=== PATIENT | female | born 1955 | race Two or more races ===

== ENCOUNTER → 2016-08-10 | Outpatient (CLI) | payer BC ==
[~2016-08-10] MED LIST: EFFEXOR XR75 MG PO; MEDROL4 M1 PO; ONE DAILY FOR1 EAC3 PO; VITAMIN D1000 UNI1 PO
== END | disposition disaster alternative care site (69) ==
LOC: GRAD 15:00
DX: M62.89 Other specified disorders of muscle (principal); M47.892 Other spondylosis, cervical region; R53.1 Weakness; R20.2 Paresthesia of skin; R20.0 Anesthesia of skin

== ENCOUNTER 2016-08-23 13:30 | Inpatient (IN) | payer BC ==
[~2016-08-23] VITALS: Ht 168.9 cm; Wt 72.5 kg
--- NOTE | ~2016-08-23 | PN ---
PATIENT'S NAME: GUS MARIA [facility] AGE: 61 Y [address] ROOM: [id number] [place], [place] [address] LOCATION: GICU ADMIT DATE: 08/23/2016 Progress Notes DISCHARGE DATE: FAMILY PHYSICIAN: Yanique Kunz MD ATTENDING PHYSICIAN: Ly Mukherjee DATE OF SERVICE: 08/28/2016 TIME SEEN: 12:55 p.m. HISTORY OF PRESENT ILLNESS: The patient is sitting in a chair. She states she worked with PT and OT today and she is unable to get out of the chair. She also wanted Dr. Jolly to know that she fell yesterday. She was walking with PT and her knees buckled and she sat on the floor. Today, she states she is doing a little better. She is sore where she had a muscle biopsy taken yesterday. PHYSICAL EXAMINATION: VITAL SIGNS: Temperature is 98.1 orally, pulse is 81, respirations 18, and blood pressure 110/57. She is saturating 96% on room air. GENERAL: She is in no acute distress. NEUROLOGICAL: Alert and oriented x4. She is able to push off the chair and stand. No pronator drift noted. Upper extremity strength worse on the right than the left with a 3 on the right and a 3+ on the left. She is able to feed herself and comb her hair. She is utilizing a walker to walk with and able to have good flying teacher strengths on that. She has some numbness and tingling on her pads of her fingers bilaterally. Her hip flexor strength is 5. Her extensor strength is 5. She is able to plantar flex and dorsiflex with good strength. In summary, this 61-year-old female, feels weak although parts of her exam are inconsistent with her feelings of weakness. Parts of her exam are inconsistent with her statements of not being able to get up out of the chair. ASSESSMENT AND PLAN: Throughout all of our testing, we have not found any reason for her weakness. The muscle biopsy is pending. We will follow up with a nerve conduction study outpatient. Because the patient is no better and states she has had declining weakness over the last 2 days, we will try a trial run of Solu-Medrol 1 g IV q.24 hours x3. We will evaluate this to see if it helps her muscle weakness. The patient has a followup appointment with Dr. Kunz in the outpatient clinic on September 14. We will certainly keep that and also if possible get an EMG for this patient. The plan of care was related to the patient and family and daughter who were all present. They asked appropriate questions. I worked with Dr. Jolly in developing the plan of care and examining the patient PATIENT'S NAME: GUS MARIA [facility] AGE: 61 Y [address] ROOM: [address] [address] LOCATION: [facility] ADMIT DATE: 08/23/2016 Progress Notes DISCHARGE DATE: FAMILY PHYSICIAN: Yanique Kunz MD ATTENDING PHYSICIAN: Ly Mukherjee and reviewing the records which took 30 minutes. The plan of care was also relayed to Dr. Arriaga and Dr. Mukherjee. SCOTT CAMPBELL APRN FOR TELLY JOLLY MD PP/modl /[id number] d: 08/28/16 1511 t: 09/11/16 1834, PROGRESS NOTES
--- NOTE | ~2016-08-23 | HP ---
PATIENT'S NAME: DANIA MARIA [facility] AGE: 61 Y [address] ROOM: [place] [address] LOCATION: [facility] ADMIT DATE: 08/23/2016 History & Physical DISCHARGE DATE: 08/30/2016 FAMILY PHYSICIAN: Yanique Kunz MD ATTENDING PHYSICIAN: Ly Mukherjee DATE OF SERVICE: PATIENT IDENTIFICATION: Dania Maria is a 61-year-old female. PRESENTING COMPLAINT: Weakness. HISTORY OF PRESENT ILLNESS: The patient has had progressive weakness noted since June 2016. She had been on a camping trip with her and she thinks she may have been bit by an insect during that camping trip. She was seen initially by Dr. Arriaga and then referred to Neurosurgery for evaluation and treatment. I felt this was sufficient to admit the patient to hospital to enable investigations as to the cause of her weakness. The patient was therefore admitted from clinic to the hospital. The weakness appeared to be worse on the left side with an associated visual field defect as well. PAST MEDICAL HISTORY: The patient has had a history of depression. PAST SURGICAL HISTORY: None. FAMILY HISTORY: The patient's mother had heart failure, father had a stroke. SOCIAL HISTORY: The patient does not smoke or drink. REVIEW OF SYSTEMS: A review of systems was carried out. On all systems no abnormality was found except as documented in the history of present illness. PHYSICAL EXAMINATION: GENERAL: The patient is a healthy-looking female, who was not in acute distress at the time I saw her. VITAL SIGNS: Reviewed and stable. NEUROLOGICAL: Speech is clear. Cranial nerves: No deficits seen. Motor: PATIENT'S NAME: DANIA MARIA [facility] AGE: 61 Y [address] ROOM: [id number] [place] [address] LOCATION: [facility] ADMIT DATE: 08/23/2016 History & Physical DISCHARGE DATE: 08/30/2016 FAMILY PHYSICIAN: Yanique Kunz MD ATTENDING PHYSICIAN: Ly Mukherjee The patient has 3-4 weakness in her upper extremities, left side weaker than right. In the lower extremities, she has 4/5 weakness again more on the left side. Reflexes: Present bilaterally. Gait: Gait was difficult as she had the weakness. CARDIOVASCULAR SYSTEM: Heart sounds are present. RESPIRATORY SYSTEM: The patient is not short of breath at bedside. EXTREMITIES: No cyanosis or clubbing. SKIN: No skin rashes or skin masses. REVIEW OF IMAGING STUDIES: The patient has had a lumbar MRI scan. The MRI does not show any significant compression to explain the patient's weakness. ASSESSMENT: A 61-year-old lady with generalized weakness greater on the right side. Brain MRI and lumbar MRI did not show cause of weakness. MEDICAL DECISION MAKING: The patient is being admitted to the hospital for workup. Neurology will be consulted to evaluate and recommend treatment. There is no indication for neurosurgical intervention. MD DESMOND BURGOS/roxannl /[id number] D: T: HISTORY & PHYSICAL
--- NOTE | ~2016-08-23 | OR ---
PATIENT'S NAME: GUS MARIA [facility] AGE: 61 Y [address] ROOM: [address] [address] LOCATION: [facility] ADMIT DATE: 08/23/2016 OR/Procedure Report DISCHARGE DATE: FAMILY PHYSICIAN: Yanique Kunz MD ATTENDING PHYSICIAN: Ly Mcmahon SURGEON: Ly Mcmahon MD SOLAR FIELD SERVICE TECHNICIAN: 1. Tate Carpenter CRNA. 2. Marzena Llanos CRNA. DATE OF PROCEDURE: 08/27/2016 PREOPERATIVE DIAGNOSIS: Generalized weakness. POSTOPERATIVE DIAGNOSES: Generalized weakness. PROCEDURE PERFORMED: Left quadriceps muscle biopsy. ANESTHESIA: General. HISTORY: The patient is a 61-year-old female, who presented with generalized weakness. Muscle biopsy was indicated to help figure out the cause of her weakness. The procedure, benefits, and risks were discussed with the patient and with her consent, she was brought to the operating room. PROCEDURE IN DETAIL: In the operating room, the patient was placed in a supine position. Anesthesia was induced. She was intubated. The anterior surface of the left thigh was prepped and draped in a sterile fashion. The incision line was marked out. Local anesthesia was infiltrated into the skin. The skin was opened and self-retaining retractors were used to hold the skin back. The fascia was opened. Muscle was held between the muscle clamps and biopsy was taken. Hemostasis was achieved. The incision was closed in layers using appropriate suture materials. Dermabond was used to close the skin. A sterile dressing was applied. The patient tolerated the procedure without any apparent intraoperative complications. Swabs, needles, and instruments were all accounted for at the end of the case. Estimated blood loss was less than 10 mL. There was no reason for blood transfusion. Hopefully, the procedure will help figure out, what was causing the patient's weakness, and help determine appropriate treatment. LY MCMAHON MD CNO/modl PATIENT'S NAME: GUS MARIA [facility] AGE: 61 Y [address] ROOM: [id number] [place], [place] [address] LOCATION: GICU ADMIT DATE: 08/23/2016 OR/Procedure Report DISCHARGE DATE: FAMILY PHYSICIAN: Yanique Kunz MD ATTENDING PHYSICIAN: Ly Mcmahon /[id number] d: 08/29/16 0025 t: 09/08/16 1811, OPERATIVE SUMMARY
--- NOTE | ~2016-08-23 | PN ---
PATIENT'S NAME: GUS MARIA [facility] AGE: 61 Y [address] ROOM: [id number] [place], [place] [address] LOCATION: [facility] ADMIT DATE: 08/23/2016 Progress Notes DISCHARGE DATE: FAMILY PHYSICIAN: Yanique Kunz MD ATTENDING PHYSICIAN: Ly Mukherjee DATE OF SERVICE: 08/25/2016 TIME: 1:15 p.m. HISTORY OF PRESENT ILLNESS: The patient was seen in neurological followup. Yesterday, she did have a lumbar puncture and we are here to relate those results. The patient is sitting in bed, and has worked with physical therapy and states she is taking a shower and is exhausted. PHYSICAL EXAMINATION: VITAL SIGNS: Temp 98.0 oral, pulse 95, respirations 17, BP 137/75, and O2 saturations 93% on room air. GENERAL: The patient is alert, oriented, and cooperative with the exam. NEUROLOGIC: Again, noted the bilateral upper extremity weakness. It is 3 to 4 weakness on both upper extremities. Her triceps seems slightly stronger than her biceps. Lower extremities seem 4/5 as far as weakness goes. Sensation intact. DIAGNOSTIC DATA: The results of yesterday include a CPK of 127, a CSF protein of 51, a CSF glucose of 68, a CSF count of 1 red cell and 3 white cells. There are 0% neutrophils, 86% lymphocytes, and 14% monos. In addition, her meningitis panel has come up with nothing detected. Pending tests include VDRL in the West Nile test. ASSESSMENT AND PLAN: Muscle weakness. While we continue to rule out causes for this muscle weakness, it is imperative that the next step would be a muscle biopsy. It would be nice to give this patient steroids for her symptoms; however, starting steroids today would affect the muscle biopsy. Dr. Mukherjee is amenable to doing the muscle biopsy Saturday. We will not start steroids until the muscle biopsy is done. The patient, her , and their daughter was at bedside and agreed to the plan of care. Dr. Kinney and I spent 30 minute examining the patient, discussing with Dr. Mukherjee, and reviewing the patient's records. All questions were answered to the best of our ability. If you have any PATIENT'S NAME: GUS MARIA [facility] AGE: 61 Y [address] ROOM: [id number] [place] [address] LOCATION: [facility] ADMIT DATE: 08/23/2016 Progress Notes DISCHARGE DATE: FAMILY PHYSICIAN: Yanique Kunz MD ATTENDING PHYSICIAN: Ly Mukherjee questions, please do not hesitate to let us know. SCOTT CAMPBELL APRN FOR KATH KINNEY MD PP/modl /[id number] d: 08/25/16 1432 t: 09/11/16 1831, PROGRESS NOTES
--- NOTE | ~2016-08-23 | CON ---
PATIENT'S NAME: GUS MARIA [facility] AGE: 61 Y [address] ROOM: [place] [address] LOCATION: [facility] ADMIT DATE: 08/23/2016 Consultation DISCHARGE DATE: FAMILY PHYSICIAN: Yanique Kunz MD ATTENDING PHYSICIAN: Ly Mukherjee DATE OF CONSULTATION: 08/24/2016 NEUROLOGICAL CONSULTATION TIME: 12:10 p.m. CHIEF COMPLAINT: Weakness. HISTORY OF PRESENT ILLNESS: This is a 61-year-old female, who has had progressive weakness noted since the end of June. In April 2016, she did have a carpal tunnel EMG and had a subsequent release on the right in June. She has noted since the end of June, she has had difficulty standing for any length of time; she has had difficulty going up stairs; and she has had difficulty rising from a low seated position. Her weakness she states is in her arms and thighs. She states her right hand is burning in sensation. She denies any tingling. Her left hand pads of her fingers are somewhat numb. She was referred from her physician, Dr. Yanique Kunz to Dr. Arriaga, and he did do an aldolase, acetylcholine binding antibody, a B12, and a folic acid. The aldolase was the only abnormal at 8.7. In addition, the patient had an MRI of her brain with contrast, and a thoracic and lumbar MRI with contrast. She had a previous MRI of her cervical spine without contrast. There was nothing here to explain the patient's weakness, so she was admitted to the hospital for further evaluation. At the time of our examination, the patient is sitting in bed and is a good historian. The patient really has no other prior medical history and is only on Effexor as far as medications goes. She has had no recent travel outside of the [place]. No recent ill contacts or no new medications. PAST MEDICAL HISTORY: 1. Weakness. 2. Depression. PAST SURGICAL HISTORY: No prior surgeries. FAMILY HISTORY: Her mother did have congestive heart failure, and her father did have a PATIENT'S NAME: GUS MARIA [facility] AGE: 61 Y [address] ROOM: [place] [address] LOCATION: [facility] ADMIT DATE: 08/23/2016 Consultation DISCHARGE DATE: FAMILY PHYSICIAN: Yanique Kunz MD ATTENDING PHYSICIAN: Ly Mukherjee stroke. She does have a sister with lung cancer, who is a positive smoker. She has had a couple of recent falls and has really given up being on any kind of stairs. SOCIAL HISTORY: The patient does not drink nor does she smoke nor has never smoked. She denies any illicit drug use. She lives at home with her . 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 REVIEW OF SYSTEMS: Completed for all systems and are negative except mentioned in the HPI. PHYSICAL EXAMINATION: VITAL SIGNS: The patient is afebrile, heart rate 62, blood pressure 112/68, respirations 16. GENERAL: The patient appears in no acute distress and is a good historian. CV: S1, S2 without murmur, rub, or gallop. RESPIRATORY: Clear to auscultation bilaterally. SKIN: No rashes or lesions noted. NEUROLOGICAL: Extraocular movements intact bilaterally. The patient exhibits 3 to 4 out of 5 weakness bilateral arms with the left being slightly worse than the right. Her biceps strength is slightly stronger than her triceps strength bilaterally. Her lower extremities are possibly 4/5 bilaterally. Her reflexes are 1/5 for patellar and brachial reflexes. ASSESSMENT AND PLAN: The patient has had imaging that does not reveal anything out of the ordinary. Her weakness appears proximal. This appears to be a muscular more than a nerve condition. We will get a CPK and also get a lumbar puncture and do meningitis panel and routine counts. After these are completed, we will make further recommendations based on those results. We would like to thank Dr. Mukherjee for the opportunity to participate in this patient's care. Plan of care was discussed with the patient and family and all questions were answered. The time of consult was around 40 minutes, which included discussing with Dr. Mukherjee, talking with the family, and examining the patient. SCOTT CAMPBELL APRN FOR KATH KINNEY MD PP/fortino PATIENT'S NAME: GUS MARIA [facility] AGE: 61 Y [address] ROOM: [id number] [place], [place] [address] LOCATION: GICU ADMIT DATE: 08/23/2016 Consultation DISCHARGE DATE: FAMILY PHYSICIAN: Yanique Kunz MD ATTENDING PHYSICIAN: Ly Mukherjee /[id number] ATTESTATION: I have seen and evaluated the patient with WALT Osuna. This includes gathering history and performing physical exam via telemedicine cart. I agree with the outlined impression and plan and we have discussed it in detail with the patient and family. d: 08/24/162025 t: 09/14/161915, CONSULTATION REPORT
--- NOTE | ~2016-08-23 | CON ---
PATIENT'S NAME: GUS MARIA [facility] AGE: 61 Y [address] ROOM: [id number], [place] [address] LOCATION: GICU ADMIT DATE: 08/23/2016 Consultation DISCHARGE DATE: 08/30/2016 FAMILY PHYSICIAN: Yanique Kunz MD ATTENDING PHYSICIAN: Ly Mukherjee DATE OF CONSULTATION: 08/28/2016 I was asked to see this patient in Telemedicine Neurology consultation. Followup was performed with the assistance of nurse practitioner, Namita Randolph, 08/28/2016. Fernandes portions of history and examination were repeated. I agree with the discussed assessment and plan of care. 35 minutes spent reviewing the charts, imaging, examining the patient, and discussing plan of care with nurse practitioner and family. Jayshree Victoria MD Neurology Telespecialist Services MD TERESA BURNETTE/fortino /[id number] d: t: 09/02/16 1143, CONSULTATION REPORT
--- NOTE | ~2016-08-23 | DS ---
PATIENT'S NAME: GUS MARIA [facility] AGE: 61 Y [address] [id number] [address] LOCATION: GICU ADMIT DATE: 08/23/2016 Discharge Summary DISCHARGE DATE: 08/30/2016 FAMILY PHYSICIAN: Yanique Kunz MD ATTENDING PHYSICIAN: Ly Mcmahon REASON FOR ADMISSION: The patient presented with progressive weakness, which started in June of 2016. The reason she was admitted was to facilitate workup to help identify the cause of her weakness. During her stay in the hospital, the patient underwent left quadriceps muscle biopsy. This was done on August 27, 2016. She also had MRI scans of her thoracic and lumbar spines as well as brain. The patient's symptoms did not progress while in the hospital and it was possible to discharge her home for a Neurology followup. The dismissal was on August 30, 2016, and she was scheduled to come back to see the neurologist for further testing including EMG and possible nerve biopsy if indicated. She has since been seen by Neurology and is being treated appropriately. FINAL DIAGNOSIS: Generalized muscle weakness, uncertain diagnosis at time of discharge The only neurosurgical involvement was to the extent of performing a left quadriceps biopsy. LY MCMAHON MD CNO/modl /[id number] CC: Priyank Herndon MD d: t: 10/22/16 0045, DISCHARGE SUMMARY
[2016-08-23] MEDS ORDERED: EFFEXOR XR75 MG PO (16:05)
[2016-08-23] MEDS ORDERED: ONE DAILY FOR1 EAC3 PO (16:05)
[2016-08-23] MEDS ORDERED: VITAMIN D1000 UNI1 PO (16:06)
[2016-08-23 16:15] LABS: CREATININE 1.2 mg/dL (0.5-1.1)
[2016-08-30] MEDS ORDERED: MEDROL4 M1 PO (11:53)
== END 2016-08-30 12:30 | disposition disaster alternative care site (69) | DRG 502 ==
LOC: GICU 14:22
PROVIDERS: ADMIT Neurological Surgery
PROC: 0KBR0ZX Excision of Left Upper Leg Muscle, Open Approach, Diagnostic (ICD-10-PCS; principal; 2016-08-27)
DX: M62.81 Muscle weakness (generalized) (principal); F32.9 Major depressive disorder, single episode, unspecified; Z80.1 Family history of malignant neoplasm of trachea, bronchus and lung
CPT/HCPCS: J0690; J2930; J3010; J7050; J7120

== ENCOUNTER → 2016-09-13 | Outpatient (CLI) | payer BC ==
--- NOTE | ~2016-09-13 | NDGEN ---
PATIENT'S NAME: GUS MARIA [facility] AGE: 61 Y [address] ROOM: [place] [address] LOCATION: [facility] ADMIT DATE: 09/13/2016 Neurodiagnostics DISCHARGE DATE: FAMILY PHYSICIAN: Yanique Kunz MD ATTENDING PHYSICIAN: SCOTT CAMPBELL DATE OF PROCEDURE: 09/13/2016 PROCEDURES PERFORMED: A four-limb EMG report nerve conduction study and the needle EMG of all 4 limbs. The patient had this study done on 09/13/2016. INDICATION/DESCRIPTION: This is a 61-year-old female patient who up until was doing fine with her power in her bilateral upper and lower extremities. However, in the beginning of July, she started to develop weakness into her upper and lower extremities. The weakness seemed to progress from the legs somewhat upward, but the time course is somewhat unclear. She has not had any improvement in her power of her legs and her arms. She has a 3/5 grade power in biceps, triceps, brachioradialis, and quadriceps power 3+/5, and hip flexion is 3+/5. Dorsiflexion of her feet is 4/5. Plantar flexion is 4+/5 symmetrically. Reflexes are present at the biceps, triceps, and brachioradialis. Patellar reflexes are subtle at trace. Ankle jerks are absent, and plantar reflexes are neutral. There was normal tone of the limbs. The patient has no symptoms of fatiguing of her bulbar muscles such as puffing out of her cheeks. She does not have any active muscle fasciculations that are visible. She has no problems with chewing or swallowing. These nerve conduction studies and EMG were done to rule out as to why the patient has this progressive weakness as well to rule out any evidence of a polyneuropathy. The motor and sensory nerve conduction studies involved stimulating the median, ulnar, peroneal, and tibial motor nerves, as well as the median, ulnar, and sural sensory nerves. F-wave studies were also performed. There was prolonged time to activation of the onset latencies in the bilateral median nerves and bilateral ulnar nerves. Amplitudes were well preserved in the median and ulnar nerves. However, nerve conduction studies were extremely slow into the demyelinating range in the right hand of 27.9 m/sec and also slow in the left to 32 m/sec with normal range this should be in the 50 m/sec range. Furthermore, the ulnar compound motor action potential and amplitudes were well preserved, but there was slowing seen in the bilateral ulnar nerves as well down to demyelinating range of 25 to 27 m/sec. In the bilateral lower extremities, there was slowing of the motor onset PATIENT'S NAME: GUS MARIA [facility] AGE: 61 Y [address] ROOM: [place] [address] LOCATION: [facility] ADMIT DATE: 09/13/2016 Neurodiagnostics DISCHARGE DATE: FAMILY PHYSICIAN: Yanique Kunz MD ATTENDING PHYSICIAN: SCOTT CAMPBELL latencies seen in the bilateral peroneal and tibial motor nerves, however, compound motor action potentials, amplitudes were well preserved. Nerve conduction velocities were into the low 30s which were slow for this patient. Sensory nerve conduction studies show very delayed peak onset latencies in the bilateral median and ulnar nerves with nerve conduction velocities into the demyelinating range of 20 m/sec. The sural nerve studies showed delayed motor onset latencies as well. Next, the needle EMG was performed in all 4 limbs. In the right upper extremity, there was normal recruitment of motor unit action potentials with normal durations, insertional pattern and no evidence of any polyphasias. However, in the abductor pollicis brevis muscle on the left side, there was positive fibrillation potentials and positive sharp waves with noted fasciculations and reduced recruitment. In the right abductor pollicis brevis muscle, there was full recruitment of motor unit action potentials without any evidence of any spontaneous electrical activity. In the left tibialis anterior muscle, there was +2 fibrillation potentials and positive sharp waves. However, there was full recruitment of motor unit action potentials within normal insertional patterns. Finally, in the bilateral vastus lateralis muscles, there was definite reduced recruitment of motor unit action potentials with polyphasic motor units seen in the bilateral vastus lateralis muscles. In the testing of the biceps brachii, and the triceps muscles in the left upper extremity, there was decreased activation of motor unit action potentials due to severe weakness. In addition to these studies, a repetitive nerve stimulation test was also performed both at rest and with the patient exercising her trapezius muscles after 2 minutes. Compound motor action potentials were repetitively stimulated. There was initial decrement in compound motor action potential response with a normal increase in the amplitudes back to baseline at the tent stimulation bob. With exercise, there was normal compound motor action potential amplitudes preserved. Thus the repetitive nerve stimulation test was normal and would likely rule out myasthenia gravis. IMPRESSION: With these nerve conduction studies and EMG, all point to a progressive subacute to chronic at this point in time, polyneuropathy. The most likely etiology, since there has not been a recovery of muscle power would be the diagnosis of chronic inflammatory demyelinating polyneuropathy; which is an idiopathic polyneuropathy involving both motor and sensory nerves associated with demyelination of peripheral nerves, though the patient has a history of carpal tunnel syndrome and there was slowing at the bilateral median nerves. This would not explain the severe demyelinative slowing range of these nerves or would it explained the severe slowing of the lower extremity nerves at the bilateral tibial and peroneal motor nerves. 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 PATIENT'S NAME: GUS MARIA [facility] AGE: 61 Y [address] ROOM: [place] [address] LOCATION: [facility] ADMIT DATE: 09/13/2016 Neurodiagnostics DISCHARGE DATE: FAMILY PHYSICIAN: Yanique Kunz MD ATTENDING PHYSICIAN: SCOTT CAMPBELL MD JAKE SANCHEZ/modl /[id number] dtt: 10/16/16 1522 , BRIANNA ESPINOZA dtd: 09/13/16 1459
== END | disposition disaster alternative care site (69) ==
LOC: GNEU 10:56
DX: M62.89 Other specified disorders of muscle (principal); R29.898 Other symptoms and signs involving the musculoskeletal system